=== PATIENT | male | born 2000 | race Caucasian/White ===

== ENCOUNTER 2018-02-14 11:41 | Emergency (ER) | payer MEDICAID, OTHER ==
[~2018-02-14] VITALS: Ht 175.3 cm; Wt 54.4 kg
[2018-02-14 11:47] VITALS: BP 128/80
[2018-02-14] MEDS: DIPHENOXYLATE /ATROPINE 2.5 MG TAB PO ONE (14:08)
[2018-02-14] MEDS: ONDANSETRON 4 MG ODT PO ONE (14:09)
[2018-02-14 15:16] VITALS: BP 119/75
== END 2018-02-14 15:16 | disposition home or self-care (01) ==
LOC: MED 11:41
DX: R11.2 Nausea with vomiting, unspecified (principal); R19.7 Diarrhea, unspecified; R10.32 Left lower quadrant pain; R42 Dizziness and giddiness; Z90.89 Acquired absence of other organs
CPT/HCPCS: 81002; 99283; S0119

== ENCOUNTER 2018-06-30 22:03 | Emergency (ER) | payer MEDICAID ==
[~2018-06-30] VITALS: Ht 175.3 cm; Wt 59.0 kg
[2018-06-30 22:08] VITALS: BP 127/81
--- NOTE | 2018-06-30 22:09 | NUR ---
TO BED # 11 AMBULATORY, REPORT GIVEN TO GERARD AYOUB
--- NOTE | 2018-06-30 22:25 | NUR ---
17/M PRESENTS TO ED WITH , C/O 5/ INTERMITTENT SHARP NONRADIATING L SIDED CP, X9 HRS; CP STARTED WHILE LAYING DOWN, S/P LIFTING BOXES AT WORK. PT DENIES SOB, N/V. PT DENIES ALCOHOL OR SUBSTANCE ABUSE. REPORTS CAFFEINE USE. PT AOX4, GCS 15, RR EVEN AND UNLABORED. S1S2 PRESENT. LUNG SOUNDS CLEAR. HX APPENTECTOMY
--- NOTE | 2018-06-30 23:05 | NUR ---
Dr. Amin evaluating patient at bedside.
--- NOTE | 2018-06-30 23:14 | NUR ---
Patient discharged with v/s stable. Written and verbal after care instructions given and explained. Patient alert, oriented and verbalized understanding of instructions. Ambulatory with . All questions addressed prior to discharge. ID band removed. Patient advised to follow up with PMD. Rx of MOTRIN given. Patient educated on indication of medication including possible reaction and side effects. Opportunity to ask questions provided and answered.
[2018-06-30 23:17] VITALS: BP 130/74
== END 2018-06-30 23:14 | disposition home or self-care (01) ==
LOC: MED 22:03
DX: R07.89 Other chest pain (principal); Z90.49 Acquired absence of other specified parts of digestive tract
CPT/HCPCS: 93005; 99283

== ENCOUNTER 2019-07-11 21:53 | Emergency (ER) | payer MEDICAID ==
[~2019-07-11] VITALS: Ht 170.2 cm; Wt 77.6 kg
[2019-07-11 22:03] VITALS: BP 141/72
--- NOTE | 2019-07-11 22:08 | NUR ---
PT AMBULATED TO BED #5.
[2019-07-11] MEDS ORDERED: KETOROLAC 60 MG/2 ML VIAL IM ONE (22:15)
--- NOTE | 2019-07-11 22:15 | NUR ---
18 y/o male c/o back injury x yesterday. rates pain 03/01 and describes it as "locked up". pt says he was working and a peice of wood fell from the second floor and hit his back. denies any head injury. vss. a & o x4. steady gait. cms intact on bue and ble. cap refill< 3. upper back shows abrasion marking. nka. no pmh.
--- NOTE | 2019-07-11 22:28 | NUR ---
pt transfer to [facility] w/c.
--- NOTE | 2019-07-11 22:40 | NUR ---
returned from xr via w/c.
[2019-07-11 23:33] VITALS: BP 141/72
--- NOTE | 2019-07-11 23:33 | NUR ---
Patient discharged with v/s stable. Written and verbal after care instructions given and explained. Patient alert, oriented and verbalized understanding of instructions. Ambulatory with steady gait. All questions addressed prior to discharge. ID band removed. Patient advised to follow up with PMD. Rx of ibuprofen, flexeril, and bacitracin given. Patient educated on indication of medication including possible reaction and side effects. Opportunity to ask questions provided and answered.
== END 2019-07-11 23:33 | disposition home or self-care (01) ==
LOC: MED 21:53
DX: M54.6 Pain in thoracic spine (principal); W20.8XXA Other cause of strike by thrown, projected or falling object, initial encounter; Y93.89 Activity, other specified; Y92.89 Other specified places as the place of occurrence of the external cause; Y99.8 Other external cause status
CPT/HCPCS: 72072; 90471; 90715; 96372; 99284; J1885

== ENCOUNTER 2022-12-29 19:39 | Emergency (ER) | payer SELFPAY ==
[~2022-12-29] VITALS: Ht 175.3 cm; Wt 81.6 kg
[2022-12-29 20:05] VITALS: BP 134/89; PULSE 115; RESP 19; TEMP 99.8; O2SAT 100
[2022-12-29 20:42] LABS: FLU A ANTIGEN negative (NEGATIVE); FLU B ANTIGEN negative (NEGATIVE)
[2022-12-30] MEDS: KETOROLAC 15 MG/ML VIAL IVP ONE (00:25)
[2022-12-30] MEDS: ONDANSETRON 4 MG/2 ML VIAL IVP ONE (00:26)
[2022-12-30] MEDS: ACETAMINOPHEN 325 MG TAB PO ONE (00:27)
[2022-12-30 00:47] LABS: BASOPHILS % (AUTO) 0.2 % (0.0-2.0); HEMATOCRIT 36.4 % (36-52); HEMOGLOBIN 12.5 g/dL (12.0-18.0); LYMPHOCYTES # (AUTO) 1.3 K/uL (2.0-11.5); LYMPHOCYTES % (AUTO) 10.9 % (20.5-51.1); MEAN CORPUSCULAR HEMOGLOBIN 28 pg (27-31); MEAN CORPUSCULAR HGB CONC 34 g/dL (33-37); MEAN CORPUSCULAR VOLUME 81.5 fL (80-94); MONOCYTES # (AUTO) 1.5 K/uL (0.8-1.0); MONOCYTES % (AUTO) 12.7 % (1.7-9.3); NEUTROPHILS # (AUTO) 8.8 K/uL (1.8-7.7); NEUTROPHILS % (AUTO) 76.2 % (42.2-75.2); PLATELET COUNT (AUTO) 202 K/uL (140-450); RED BLOOD CELL COUNT(AUTO) 4.46 MIL/uL (4.20-6.10); RED CELL DISTRIBUTION WIDTH 13.4 % (11.6-13.7); WHITE BLOOD COUNT (AUTO) 11.6 K/uL (4.8-10.8)
[2022-12-30 01:14] LABS: ANION GAP 13.1 (8-16); CARBON DIOXIDE 25.7 mmol/L (21-32); POTASSIUM 3.8 mmol/L (3.5-5.1)
[2022-12-30 01:15] LABS: CALCIUM 7.6 mg/dL (8.5-10.1); CREATININE 0.8 mg/dL (0.6-1.3); TOTAL BILIRUBIN 0.6 mg/dL (0.0-1.0)
[2022-12-30 01:16] LABS: ALBUMIN 3.2 g/dL (3.4-5.0); TOTAL PROTEIN, SERUM 7.2 g/dL (6.4-8.2)
[2022-12-30 01:44] LABS: APPEARANCE,URINE CLEAR (CLEAR); BILIRUBIN,URINE NEGATIVE (NEGATIVE); BLOOD, URINE NEGATIVE (NEGATIVE); COLOR,URINE YELLOW (YELLOW); LEUKOCYTE ESTERASE ,URINE NEGATIVE (NEGATIVE); NITRITE, URINE NEGATIVE (NEGATIVE); PROTEIN,URINE NEGATIVE (NEGATIVE); UGLUCOSE NEGATIVE (NEGATIVE)
[2022-12-30] MEDS ORDERED: ONDA-188 SL (02:00)
[2022-12-30 02:15] VITALS: BP 114/61; PULSE 81; RESP 17; O2SAT 100
[2022-12-30] MEDS: NACL 0.9% 1,000 ML IV ONE (02:24)
== END 2022-12-30 02:15 | disposition home or self-care (01) ==
LOC: EDSEX 19:39 → MED 19:39
DX: B34.9 Viral infection, unspecified (principal); R11.2 Nausea with vomiting, unspecified; M79.10 Myalgia, unspecified site; R51.9 Headache, unspecified; E86.0 Dehydration; Z20.822 Contact with and (suspected) exposure to COVID-19
CPT/HCPCS: 36415; 80053; 81003; 83690; 85025; 87426; 87804; 96374; 96375; 99284; J1885; J2405; 96361